=== PATIENT | female | born 1950 | race Caucasian/White ===

== ENCOUNTER → 2018-01-15 | Outpatient (CLI) | payer OTHER, MEDICAID ==
[~2018-01-15] MED LIST: ASPIRIN325 PO; COLACE100 MG PO; CYCLOBENZAPRINE5 MG PO; DEXILANT60 MG PO; ELIQUIS2.5 MG PO; JUBLIA4 ML TOP; KEFLEX500 M2 PO; METAMUCIL0.52 GM PO; NORCO 5-325 TA1 EACH PO; OSELB75 PO; OXYCODONE HCL 55 MG PO; PROAIR RESPICL90 MCG INH; SIMVASTATIN20 MG PO; SYNTHROID50 MCG PO; TRAMADOL 50 MG50 MG PO; TYLENOL325 MG PO; VOLTAREN GEL 1100 G2 TOP
== END ==
LOC: M.RAD 14:00
DX: Z12.31 Encounter for screening mammogram for malignant neoplasm of breast (principal)

== ENCOUNTER → 2018-02-26 | Outpatient (CLI) | payer OTHER, MEDICAID | LOC: M.ULTRA 02-25 10:30 | DX: J44.9 Chronic obstructive pulmonary disease, unspecified (principal); M79.662 Pain in left lower leg; M79.661 Pain in right lower leg; R60.0 Localized edema ==

== ENCOUNTER 2018-07-02 09:22 | Inpatient (IN) | payer OTHER, MEDICAID ==
[2018-06-06 09:22] LABS: ABSOLUTE EOSINOPHILS 0.1 thou/uL (0.0-0.7); ABSOLUTE LYMPHOCYTES 1.7 thou/uL (0.8-5.3); ABSOLUTE MONOCYTES 0.7 thou/uL (0.0-1.2); ABSOLUTE NEUTROPHILS 8.2 thou/uL (1.6-8.1); BASOPHILS 0.3 %; EOSINOPHILS 0.6 %; HEMATOCRIT 42.5 % (37.0-47.0); HEMOGLOBIN 14.3 gm/dL (12.0-15.0); LYMPHOCYTES 16.3 %; MCH 30.5 pg (26.0-34.0); MCHC 33.6 g/dL (28.0-37.0); MCV 90.8 fL (80.0-100.0); MONOCYTES 6.1 %; MPV 8.1 fl. (7.2-11.1); NUCLEATED RBCS 0 /100WBC; PLATELET COUNT* 283 thou/uL (150-400); POLYS 76.7 %; RBC 4.68 mil/uL (4.20-5.00); RDW-CV 14.2 % (10.5-14.5); WBC 10.6 thou/uL (4.0-11.0)
[2018-06-06 09:28] LABS: CREATININE 0.7 mg/dL (0.6-1.3); POTASSIUM 4.7 mmol/L (3.5-5.1)
[2018-06-06 09:33] LABS: ALBUMIN 3.8 g/dL (3.4-5.0); TOTAL BILIRUBIN 0.5 mg/dL (<0.1-1.0); TOTAL PROTEIN 8.6 g/dL (6.4-8.2)
--- NOTE | 2018-06-06 16:37 | EKG ---
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
[~2018-07-02] VITALS: Ht 160 cm; Wt 86.2 kg
[~2018-07-02 09:22] MED LIST changes: -ASPIRIN325 PO; -COLACE100 MG PO; -ELIQUIS2.5 MG PO; -METAMUCIL0.52 GM PO; -NORCO 5-325 TA1 EACH PO; -OXYCODONE HCL 55 MG PO
[2018-07-02 10:27] VITALS: BP 116/68
[2018-07-02 14:15] VITALS: BP 116/66
[2018-07-03 00:20] VITALS: BP 120/62
[2018-07-03 04:22] VITALS: BP 119/62
[2018-07-03 05:09] LABS: HEMATOCRIT 34.5 % (37.0-47.0); HEMOGLOBIN 11.5 gm/dL (12.0-15.0)
[2018-07-03 16:00] VITALS: BP 144/81
[2018-07-03 19:47] VITALS: BP 129/75
[2018-07-04 02:42] VITALS: BP 138/71
[2018-07-04 03:30] LABS: HEMATOCRIT 32.7 % (37.0-47.0)
[2018-07-04 08:54] VITALS: BP 140/50
[2018-07-04] MEDS ORDERED: ASPIRIN325 PO (10:26)
[2018-07-04] MEDS ORDERED: ELIQUIS2.5 MG PO (10:27)
[2018-07-04] MEDS ORDERED: OXYCODONE HCL 55 MG PO (10:30)
[2018-07-04] MEDS ORDERED: NORCO 5-325 TA1 EACH PO (10:32)
[2018-07-04 10:38] VITALS: BP 140/50
[2018-07-04] MEDS ORDERED: COLACE100 MG PO (10:50)
[2018-07-04] MEDS ORDERED: METAMUCIL0.52 GM PO (11:34)
[2018-07-04 16:31] VITALS: BP 138/80
[2018-07-05 08:23] VITALS: BP 134/82
--- NOTE | 2018-07-05 09:20 | OP ---
[address] [address] OPERATIVE REPORT Name: GISELLE GOODE Kartik Room: [address] IN .R.#: [id number] Admission: 07/02/18 Attend Phys: Cal Lyn Discharge: Date of : 48 Report #: [id number] THIS REPORT FOR: //name// CC: Joseph Cruz DICTATED BY: Pedro Mann DO DATE OF SERVICE: 07/02/2018 PREOPERATIVE DIAGNOSIS: Advanced degenerative joint disease, left knee. POSTOPERATIVE DIAGNOSIS: Advanced degenerative joint disease, left knee. PROCEDURE: Left total knee arthroplasty utilizing MicroPort total knee arthroplasty system with the following components. 1. Size 5 left Evolution keeled tibial baseplate. 2. Size 4 left Evolution medial pivot CR femoral component. 3. Size 5 left Evolution medial pivot 14-mm thickness polyethylene tibial insert. 4. A 32-mm Tri-peg polyethylene patella component. 5. Two bags of Palacos bone cement. SURGEON: Pepe Barone DO. FRONT OFFICE SECRETARY: Pedro Mann DO. ANESTHESIA: Spinal with light sedation throughout the case and an adductor canal block to the left lower extremity. ESTIMATED BLOOD LOSS: 150 mL. ANTIBIOTICS: 600 mg clindamycin IV preoperatively. SPECIMENS: None. DRAINS: None. COMPLICATIONS: None. DISPOSITION: Stable to PACU and will be admitted to the hospital for standard postoperative care. TOURNIQUET TIME: 25 minutes at 300 mmHg to the left lower extremity, [place] [address] OPERATIVE REPORT Name: GISELLE GOODE Kartik Room: [address] IN .R.#: [id number] Admission: 07/02/18 Attend Phys: Cal Lyn Discharge: Date of : 48 Report #: [id number] this for cementing of the final component. INDICATION FOR PROCEDURE: The patient is a pleasant 67-year-old female who was seen in the Orthopedic Clinic multiple times with complaints of chronic left knee pain. She was found to have advanced degenerative joint disease changes on radiographs. Her pain was rather severe and was refractory to conservative measures, consisting of oral anti-inflammatories, activity modifications, home physical therapy exercises and intra-articular corticosteroid injections for much greater than 6 months' duration. Pain was really impacting her quality of life, preventing her from performing activities that she wished to do. Therefore, recommended proceeding with a left total knee arthroplasty. The patient wished to proceed today after discussing the risks, benefits, complications, indications and alternative treatments. DESCRIPTION OF PROCEDURE: The patient was seen in the preoperative holding area and correct operative site, left knee, was initialed. The patient was taken back to the operating suite, placed in supine position on the operating table and given a spinal anesthesia administered by the Anesthesia team of course and was given benefit of light sedation throughout the case. A well-padded tourniquet was placed in the left thigh in the normal fashion. Left lower extremity was prepped and draped in typical fashion. Surgery began with a time-out identifying correct patient, correct procedure, correct operative site, preoperative antibiotics and correct performing surgeon. Next, a standard midline anterior left knee incision was made directly overlying the left knee, starting roughly 3-4 cm proximal to the superior pole of the patella, extending down the tibial tubercle. Skin was incised with 10 blade scalpel down to prepatellar fascia. Next, a medial parapatellar arthrotomy was performed with a new 10 blade scalpel. Patella was everted, knee was flexed. A drill was introduced into the femoral intramedullary canal, followed by the distal femoral intramedullary cutting guide, positioned in 5 degrees of valgus with a 12-mm resection as she lacked flexion. A cutting block was pinned into place. The distal femoral cut was performed in normal fashion. Next, attention was turned to the proximal tibia cut. Extramedullary tibial guide was held in place over the medial third tibial tubercle, the tibial crest and center of the talus. A 10-mm resection was measured off the high lateral side. A proximal tibial cutting block was pinned into place. Proximal tibia cut was performed in a normal fashion using oscillating saw, protecting the collateral ligaments and neurovascular structures at all times. Next, attention was back turned to the femur. AP sizer was used to size the femur appropriately, followed by impaction and drilled in 3 [place] [address] OPERATIVE REPORT Name: GISELLE GOODE Room: [address] [place] .R.#: [id number] Admission: 07/02/18 Attend Phys: Cal Lyn Discharge: Date of : 48 Report #: [id number] rotation. A 4-in-1 cutting block was impacted in place in the normal fashion. The anterior, posterior and anterior-posterior chamfer cuts were performed utilizing an oscillating saw in the normal fashion. All bony debris was removed. Menisci were excised. The trial tibial component was pinned into place in the normal fashion with appropriate rotation and alignment, followed by a trial femoral component and followed by a trial 10 mm and then a 12-mm polyethylene spacer. Next, patella was resurfaced utilizing the Ermelinda resurfacing and drilled in the normal fashion, measured to the appropriate size. A trial patella button was then placed. Patella tracked appropriately throughout range of motion. We did perform a posterior capsular release as she was lacking a little bit of full extension, which this helped to obtain significantly. Next, tourniquet was inflated after esmarching the leg. All trial components were removed after punching and drilling the tibia in the normal fashion. Next, bony surfaces were thoroughly irrigated utilizing pulsatile lavage. Final components were cemented into place in the normal fashion, first starting with the tibia, followed by the femur and then the patellar component. Next, a 12-mm polyethylene spacer was inserted and the knee was held in extension until the cement had hardened. All excess cement was removed in the normal fashion. Once cement had hardened, the knee was taken through range of motion. We trialed to a 14-mm polyethylene spacer and this had full extension, full flexion, good mid flexion stability and rather symmetric and stable varus and valgus stressing. Therefore, a final 14-mm polyethylene spacer was impacted into place after thoroughly irrigating the tibial tray and cleaning out any cement debris. Next, the knee was taken through range of motion one last time after inserting the final poly and again had full flexion and full extension, had great stability to varus and valgus and a good mid flexion stability. Next, TXA was inserted in the wound in normal fashion as well as Betadine solution. Tourniquet was deflated. Wound was thoroughly irrigated. The capsule was closed in a topyso-yn-prkix fashion with one # Ti-Cron at the superior medial corner of the capsulotomy of the patella. The remainder of the capsule was closed in a edanzv-xq-gpvls fashion with #1 Vicryl suture. Subcutaneous tissues were closed in a simple inverted fashion with 2-0 Monocryl suture. A running 3-0 Stratafix was performed on the subcuticular layer. Dermabond was applied to the skin. Sterile dressings were applied consisting of Mepilex and thigh-high BANG hose. The [place] [address] OPERATIVE REPORT Name: GISELLE GOODE Room: [address] IN [facility].#: [id number] Admission: 07/02/18 Attend Phys: Cal Lyn Discharge: Date of : 48 Report #: [id number] sedation, transferred in stable condition to PACU. All sponge and needle counts were correct x 2. <ELECTRONICALLY SIGNED> By: Pepe Kramer DO 07/05/18 0920 1820 0057Pepe Kramer DO /nt
[2018-07-05 10:18] VITALS: BP 140/50
--- NOTE | 2018-07-05 14:12 | EKG ---
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1950 Requested By: Paddy Ruggiero Order Number: [id number] Reading MD: Jose Miguel Lara Measurements Intervals [place] Rate: 99 P: 63 [place]: 146 QRS: 63 QRSD: 99 T: 40 QT: 336 QTc: 432 Interpretive Statements Sinus tachycardia Atrial premature complex Abnormal R-wave progression, early transition Compared to ECG 06/06/2018 09:47:22 Atrial premature complex(es) now present Sinus rhythm no longer present Electronically Signed On 07-05-2018 14:12:18 CDT by Jose Miguel Lara [email or web address] <ELECTRONICALLY SIGNED> By: Jose Miguel Lara MD, FACC 07/05/18 1412 1304 1304 Jose Miguel Lara MD, FAC /EPI
[2018-07-05 15:13] VITALS: BP 140/50
[2018-07-05 16:31] VITALS: BP 140/50
== END 2018-07-05 16:55 | DRG 470 ==
LOC: M.SUR 09:22 → M.TBA 13:43 → M.ORTHSURG 13:43
PROVIDERS: Orthopaedic Surgery; ADMIT Internal Medicine
PROC: 0SRD0J9 Replacement of Left Knee Joint with Synthetic Substitute, Cemented, Open Approach (ICD-10-PCS; principal; 2018-07-02)
DX: M17.12 Unilateral primary osteoarthritis, left knee (principal); E78.5 Hyperlipidemia, unspecified; H40.9 Unspecified glaucoma; J44.9 Chronic obstructive pulmonary disease, unspecified; Z96.1 Presence of intraocular lens; E05.00 Thyrotoxicosis with diffuse goiter without thyrotoxic crisis or storm; R00.0 Tachycardia, unspecified; Z88.0 Allergy status to penicillin; Z88.2 Allergy status to sulfonamides; Z90.49 Acquired absence of other specified parts of digestive tract; Z82.49 Family history of ischemic heart disease and other diseases of the circulatory system; Z83.3 Family history of diabetes mellitus; Z87.891 Personal history of nicotine dependence; Z79.01 Long term (current) use of anticoagulants; Z28.21 Immunization not carried out because of patient refusal

== ENCOUNTER → 2018-07-29 | Outpatient (CLI) | payer OTHER, MEDICAID ==
[~2018-07-29] MED LIST changes: +ASPIRIN325 PO; +COLACE100 MG PO; +ELIQUIS2.5 MG PO; +METAMUCIL0.52 GM PO; +NORCO 5-325 TA1 EACH PO; +OXYCODONE HCL 55 MG PO
== END ==
LOC: M.ULTRA 16:39
DX: M79.662 Pain in left lower leg (principal)

== ENCOUNTER → 2019-03-04 | Outpatient (CLI) | payer OTHER, MEDICAID ==
[~2019-03-04] MED LIST changes: +ESTRADIOL 1 MG T1 M1 PO; +MIRALAX17 GM PO; +OXYGEN MISCELL; +STIOLTO RESPIMAT4 GM INH
== END ==
LOC: M.RAD 13:49
DX: Z12.31 Encounter for screening mammogram for malignant neoplasm of breast (principal)

== ENCOUNTER → 2019-05-16 | Day surgery (SDC) | payer OTHER, MEDICAID ==
--- NOTE | ~2019-05-16 | PROC ---
[address] [address] PROCEDURE REPORT Name: GISELLE GOODE Room: [facility].#: [id number] Admission: 05/16/19 Attend Phys: Justo Villar MD Discharge: Date of : 48 Report #: [id number] THIS REPORT FOR: //name// For GI report, please see the Provation report in Perceptive 7 content. By: 0819Medical Records Staff DRU /DERRICK
[2019-05-16 08:56] LABS: HEMOGLOBIN 13.5 gm/dL (12.0-15.0); MCH 29.6 pg (26.0-34.0); MCHC 33.6 g/dL (28.0-37.0); MCV 87.9 fL (80.0-100.0); MPV 7.5 fl. (7.2-11.1); RBC 4.55 mil/uL (4.20-5.00); RDW-CV 15.7 % (10.5-14.5); WBC 7.4 thou/uL (4.0-11.0)
[2019-05-16 08:59] LABS: CALCIUM 9.2 mg/dL (8.5-10.1); CREATININE 0.6 mg/dL (0.6-1.3); POTASSIUM 3.9 mmol/L (3.5-5.1)
--- NOTE | 2019-05-16 10:51 | EKG ---
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1950 Requested By: Justo Villar Order Number: [id number] Michael COPELAND: Thang Platt Measurements Intervals [place] Rate: 85 P: 52 PA: 157 QRS: 58 QRSD: 98 T: 56 QT: 371 QTc: 442 Interpretive Statements Sinus rhythm Compared to ECG 07/05/2018 13:04:25 Sinus tachycardia no longer present Atrial premature complex(es) no longer present Electronically Signed On 05-16-2019 10:51:00 CDT by Thang Platt [email or web address] <ELECTRONICALLY SIGNED> By: Thang Platt MD, [facility] 05/16/19 1051 0854 0854 Thang Platt MD, FAC /EPI
--- NOTE | 2019-05-19 16:06 | PATH ---
[address] [address] PATHOLOGY RPT PROCEDURE Name: GISELLE BEAN Room: [facility].#: [id number] Admission: 05/16/19 Date of : 48 Discharge: Report #: [id number] Path Case #: [id number] [facility] Accession Number: [id number] . 01 Material submitted: . sigmoid colon - SIGMOID POLYP . 01 Clinical history: . Abnormal stool test. . 02 Diagnosis: Sigmoid polyp: - Hyperplastic polyp and melanosis coli. . (POONAM:mml; 05/19/2019) QL/05/19/2019 . 02 Electronically signed: . Toy Mayers MD, Pathologist NPI- [id number] . 01 Gross description: . Received in formalin labeled "Giselle Bean sigmoid polyp" is a 0.7 x 0.4 x 0.1 cm fragment of fu-brown mucosa. The specimen is submitted in A1. ([facility]; 05/18/2019) SYC/SYC . 02 Pathologist provided ICD-10: K63.5, K63.89 . 02 CPT . 651997 Specimen Comment: A courtesy copy of this report has been sent to Specimen Comment: [phone], . Specimen Comment: Report sent to / DR WATSON Performed at: [address], [place] [address] MD Montez Sanchez MD Phone: [phone] Performed at: 02 [facility] [address], [place], [place] [address] MD Toy Mayers MD Phone: [phone]
== END | disposition home or self-care (01) ==
LOC: M.SUR 08:20
PROVIDERS: Internal Medicine Gastroenterology
DX: K63.5 Polyp of colon (principal); K63.89 Other specified diseases of intestine; K57.30 Diverticulosis of large intestine without perforation or abscess without bleeding; K64.8 Other hemorrhoids; K44.9 Diaphragmatic hernia without obstruction or gangrene; K21.9 Gastro-esophageal reflux disease without esophagitis; J44.9 Chronic obstructive pulmonary disease, unspecified; Z88.8 Allergy status to other drugs, medicaments and biological substances; Z88.0 Allergy status to penicillin; Z88.2 Allergy status to sulfonamides; Z90.49 Acquired absence of other specified parts of digestive tract; Z98.890 Other specified postprocedural states; Z79.899 Other long term (current) drug therapy

== ENCOUNTER → 2020-05-05 | Outpatient (CLI) | payer OTHER, MEDICAID | LOC: M.RAD 12:36 | PROVIDERS: ATTEND Nurse Practitioner Family | DX: Z12.31 Encounter for screening mammogram for malignant neoplasm of breast (principal); N63.10 Unspecified lump in the right breast, unspecified quadrant ==

== ENCOUNTER → 2020-12-30 | Outpatient (CLI) | payer OTHER | LOC: M.CT 12:52 | PROVIDERS: ATTEND Nurse Practitioner Family | DX: R93.89 Abnormal findings on diagnostic imaging of other specified body structures (principal) ==

== ENCOUNTER → 2021-02-01 | Outpatient (CLI) | payer OTHER, MEDICAID | LOC: M.PUL 12:49 | PROVIDERS: ATTEND Internal Medicine Critical Care Medicine | DX: J44.9 Chronic obstructive pulmonary disease, unspecified (principal) ==

== ENCOUNTER → 2021-02-08 | Outpatient (CLI) | payer OTHER, MEDICAID | LOC: M.SLEEPLAB 20:55 | PROVIDERS: ATTEND Internal Medicine Critical Care Medicine | DX: G47.10 Hypersomnia, unspecified (principal) ==

== ENCOUNTER → 2021-05-23 | Outpatient (CLI) | payer OTHER, MEDICAID ==
[~2021-05-23] MED LIST changes: +CRESTOR20 MG PO; +FLONASE 0.05%50 MCG NASAL; +FREESTYLE FREE1 EAC1 MISCELL; +LISINOPRIL5 MG PO; +MELATONIN10 M3 PO; +METFORMIN HCL500 M3 PO; +PROAIR RESPICLICK INH; +SINGULAIR 10 MG10 M1 PO
== END ==
LOC: M.CT 12:30
PROVIDERS: ATTEND Internal Medicine Critical Care Medicine
DX: K76.0 Fatty (change of) liver, not elsewhere classified (principal); I25.10 Atherosclerotic heart disease of native coronary artery without angina pectoris; M25.78 Osteophyte, vertebrae; R91.1 Solitary pulmonary nodule; Z90.49 Acquired absence of other specified parts of digestive tract

== ENCOUNTER 2021-05-28 18:09 | Emergency (ER) | payer OTHER, MEDICAID ==
[~2021-05-28] VITALS: Ht 165.1 cm; Wt 92.1 kg
[2021-05-28] MEDS ORDERED: ASA81BEC PO (18:29)
[2021-05-28] MEDS ORDERED: ARNUITY ELLIP100 MCG INH (18:30)
[2021-05-28] MEDS ORDERED: TOPROL XL25 MG PO (18:31)
[2021-05-28] MEDS ORDERED: COZAAR 25 MG TA25 MG PO (18:31)
[2021-05-28] MEDS ORDERED: TRIAMTERENE/HCT1 CA1 PO (18:33)
[2021-05-28 18:47] LABS: HEMATOCRIT 42.3 % (37.0-47.0); HEMOGLOBIN 14.3 gm/dL (12.0-15.0); MCH 29.4 pg (26.0-34.0); MCHC 33.7 g/dL (28.0-37.0); MCV 87.2 fL (80.0-100.0); RBC 4.86 mil/uL (4.20-5.00); RDW-CV 14.8 % (10.5-14.5); WBC 8.7 thou/uL (4.0-11.0)
[2021-05-28 18:49] LABS: CALCIUM 9.8 mg/dL (8.5-10.1); CREATININE 0.8 mg/dL (0.6-1.3)
[2021-05-28 23:00] VITALS: BP 139/79
--- NOTE | 2021-05-30 11:40 | EKG ---
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 : 1950 Requested By: Yoel Stanley Order Number: [id number] MD: Thang Platt Measurements Intervals [place] Rate: 110 P: 75 [place]: 168 QRS: 114 QRSD: 95 T: 67 QT: 329 QTc: 446 Interpretive Statements Sinus tachycardia Mild right axis deviation Minor interventricular conduction delay Since the previous tracing heart rate has increased Electronically Signed On 05-30-2021 11:40:03 CDT by Thang Platt [email or web address] <ELECTRONICALLY SIGNED> By: Thang Platt MD, [facility] 05/30/21 1140 1815 181 Thang Platt MD, [facility] /EPI
== END 2021-05-28 23:00 | disposition home or self-care (01) ==
LOC: M.ERS 18:09
PROVIDERS: Emergency Medicine Emergency Medical Services
DX: R03.0 Elevated blood-pressure reading, without diagnosis of hypertension (principal); R00.0 Tachycardia, unspecified; R51.9 Headache, unspecified; H53.8 Other visual disturbances; R05 Cough; R09.89 Other specified symptoms and signs involving the circulatory and respiratory systems; J44.9 Chronic obstructive pulmonary disease, unspecified; E78.5 Hyperlipidemia, unspecified; E03.9 Hypothyroidism, unspecified; M19.90 Unspecified osteoarthritis, unspecified site; K21.9 Gastro-esophageal reflux disease without esophagitis; F17.210 Nicotine dependence, cigarettes, uncomplicated; Z90.49 Acquired absence of other specified parts of digestive tract; Z79.899 Other long term (current) drug therapy; Z79.82 Long term (current) use of aspirin; Z91.048 Other nonmedicinal substance allergy status; Z88.8 Allergy status to other drugs, medicaments and biological substances; Z88.0 Allergy status to penicillin; Z88.2 Allergy status to sulfonamides

== ENCOUNTER → 2021-05-31 | Outpatient (CLI) | payer OTHER, MEDICAID ==
[~2021-05-31] MED LIST changes: +ARNUITY ELLIP100 MCG INH; +ASA81BEC PO; +COZAAR 25 MG TA25 MG PO; +TOPROL XL25 MG PO; +TRIAMTERENE/HCT1 CA1 PO
== END ==
LOC: M.RAD 13:16
PROVIDERS: ATTEND Nurse Practitioner Family
DX: Z12.31 Encounter for screening mammogram for malignant neoplasm of breast (principal); N63.20 Unspecified lump in the left breast, unspecified quadrant

== ENCOUNTER → 2021-06-06 | Outpatient (CLI) | payer OTHER, MEDICAID | LOC: M.RAD 06-01 13:16 | PROVIDERS: ATTEND Nurse Practitioner Family | DX: N60.09 Solitary cyst of unspecified breast (principal); R92.2 Inconclusive mammogram ==

== ENCOUNTER → 2021-06-08 | Outpatient (CLI) | payer OTHER, MEDICAID ==
[2021-06-08 13:07] LABS: CALCIUM 10.2 mg/dL (8.5-10.1); CREATININE 0.7 mg/dL (0.6-1.3); POTASSIUM 4.4 mmol/L (3.5-5.1)
== END ==
LOC: M.LAB 12:32
PROVIDERS: ATTEND Registered Nurse
DX: I10 Essential (primary) hypertension (principal)